=== PATIENT | male | born 1990 ===

== ENCOUNTER 2021-06-12 08:35 | Outpatient (REF) | payer OTHER, SELFPAY ==
[2021-06-12 11:50] LABS: Appearance Urine CLEAR; Color Urine YELLOW; Glucose Urine UA NEG (NEG); Leukocyte Esterase Urine NEG (NEG); Nitrite Urine NEG (NEG); Specific Gravity - Urine 1.025 (1.005-1.025); Urine Blood NEG (NEG); Urine Ketones NEG (NEG); Urine Protein NEG (NEG-TRACE)
[2021-06-12 12:18] LABS: Mucus Urine 1+ /LPF; RBC Urine 0 /HPF (0); WBC Urine 0 /HPF (0-4)
[2021-06-12 12:20] LABS: HBS Num1 85.55 mIU/mL (0-7.99); ~Hepatitis B Surface Antibody REACTIVE (Nonreactive)
[2021-06-12 12:32] LABS: HBsAGNum1 0.22 S/CO (0.00-0.99); HIV AB/AG Nonreactive (Nonreactive); Hepatitis B Surface Antigen Negative (Negative)
[2021-06-12 12:35] LABS: HBc Num1 0.24 S/CO (0.00-0.79); Hepatitis B Core Antibody Nonreactive (Nonreactive)
[2021-06-12 12:37] LABS: Alanine Aminotransferase 17 U/L (0-40); Albumin Level 4.3 g/dL (3.5-5.0); Alkaline Phosphatase 58 U/L (39-117); Anion Gap 12 (12-20); Aspartate Amino Transferase 17 U/L (5-37); Bilirubin Total 0.9 mg/dL (0.0-1.0); Blood Urea Nitrogen 12 mg/dL (9-16); Calcium 9.5 mg/dL (8.4-10.2); Carbon Dioxide 27 mmol/L (22-29); Chloride 105 mmol/L (96-108); Cholesterol 177 mg/dL; Estimated Glomerular Filt Rate > 60; Glucose Fasting 90 mg/dL (60-99); HDL Cholesterol 40 mg/dL; LDL Cholesterol Calculated 124 mg/dl; Potassium 4.1 mmol/L (3.3-5.1); Sodium 140 mmol/L (135-145); Triglycerides 69 mg/dL
[2021-06-12 13:24] LABS: Syphilis Screen Nonreactive (Nonreactive)
== END 2021-06-12 08:36 | disposition home or self-care (01) ==
LOC: HO.HMGCLDS 08:35
PROVIDERS: Visit Provider Internal Medicine
DX: Z00.00 Encounter for general adult medical examination without abnormal findings (principal); Z11.4 Encounter for screening for human immunodeficiency virus [HIV]; F41.9 Anxiety disorder, unspecified
CPT/HCPCS: 36415; 80053; 80061; 81001; 86704; 86706; 86780; 87340; 87389

== ENCOUNTER 2021-09-17 11:38 | Outpatient (REF) | payer OTHER, SELFPAY ==
[2021-09-17 13:44] LABS: MANUAL DIFF FLAG NO
[2021-09-17 14:01] LABS: Basophils Absolute Auto 0.1 X10*3/uL (0.0-0.2); Basophils Percent Auto 1.2 % (0-2); Eosinophils Absolute Auto 0.2 X10*3/uL (0.0-0.4); Eosinophils Percent Auto 3.6 % (0-4); Hematocrit 46.6 % (42.0-52.0); Hemoglobin 15.1 g/dl (14.0-18.0); Imm Gran Abs Auto 0.01 X10*3/uL (0.00-0.03); Imm Gran Pct Auto 0.2 % (0.0-0.4); Lymphocytes Absolute Auto 1.7 X10*3/uL (1.2-4.9); Lymphocytes Percent Auto 41.2 % (20-40); Mean Corpuscular HGB Conc 32.4 g/dl (31.0-36.0); Mean Corpuscular Hemoglobin 29.2 pg (27.0-33.0); Mean Platelet Volume 10.4 fL (9.4-12.4); Monocytes Absolute Auto 0.3 X10*3/uL (0.1-1.2); Monocytes Percent Auto 6.7 % (2-11); Neutrophils Percent Auto 47.1 % (45-73); Platelet Count 248 X10*3/uL (160-400); Red Blood Count 5.18 X10*6/uL (4.60-5.80); White Blood Count 4.2 X10*3/uL (4.8-10.8)
[2021-09-17 14:18] LABS: Alanine Aminotransferase 34 U/L (0-40); Albumin Level 4.5 g/dL (3.5-5.0); Alkaline Phosphatase 76 U/L (39-117); Anion Gap 10 (12-20); Aspartate Amino Transferase 21 U/L (5-37); Bilirubin Total 0.5 mg/dL (0.0-1.0); Blood Urea Nitrogen 13 mg/dL (9-16); Calcium 9.7 mg/dL (8.4-10.2); Carbon Dioxide 29 mmol/L (22-29); Chloride 105 mmol/L (96-108); Estimated Glomerular Filt Rate > 60; Glucose Random 99 mg/dL (60-115); Potassium 4.8 mmol/L (3.3-5.1); Sodium 139 mmol/L (135-145); Total Protein 7.3 g/dL (6.5-8.0)
[2021-09-18 07:31] LABS: Syphilis Screen Nonreactive (Nonreactive)
[2021-09-18 07:40] LABS: HIV AB/AG Nonreactive (Nonreactive)
== END 2021-09-17 11:39 | disposition home or self-care (01) ==
LOC: HO.HMGCLDS 11:38
PROVIDERS: PCP Internal Medicine; Visit Provider Internal Medicine
DX: Z00.00 Encounter for general adult medical examination without abnormal findings (principal); Z11.4 Encounter for screening for human immunodeficiency virus [HIV]
CPT/HCPCS: 36415; 80053; 85025; 86780; 87389

== ENCOUNTER 2021-12-23 14:26 | Outpatient (REF) | payer OTHER, SELFPAY ==
[2021-12-23 16:44] LABS: MANUAL DIFF FLAG NO
[2021-12-23 16:48] LABS: Basophils Absolute Auto 0.1 X10*3/uL (0.0-0.2); Eosinophils Absolute Auto 0.1 X10*3/uL (0.0-0.4); Eosinophils Percent Auto 1.9 % (0-4); Hematocrit 46.3 % (42.0-52.0); Hemoglobin 15.4 g/dl (14.0-18.0); Imm Gran Abs Auto 0.01 X10*3/uL (0.00-0.03); Imm Gran Pct Auto 0.2 % (0.0-0.4); Lymphocytes Absolute Auto 2.1 X10*3/uL (1.2-4.9); Lymphocytes Percent Auto 39.5 % (20-40); Mean Corpuscular HGB Conc 33.3 g/dl (31.0-36.0); Mean Corpuscular Hemoglobin 29.3 pg (27.0-33.0); Mean Corpuscular Volume 88.2 fL (80.0-98.0); Mean Platelet Volume 10.3 fL (9.4-12.4); Monocytes Absolute Auto 0.4 X10*3/uL (0.1-1.2); Monocytes Percent Auto 6.8 % (2-11); Neutrophils Absolute Auto 2.7 x10*3/uL (2.0-8.3); Neutrophils Percent Auto 50.6 % (45-73); Platelet Count 268 X10*3/uL (160-400); Red Blood Count 5.25 X10*6/uL (4.60-5.80); Red Cell Distribution Width 12.7 % (11.0-16.0); White Blood Count 5.3 X10*3/uL (4.8-10.8)
[2021-12-23 17:10] LABS: Alanine Aminotransferase 30 U/L (0-40); Albumin Level 4.7 g/dL (3.5-5.0); Alkaline Phosphatase 89 U/L (39-117); Anion Gap 15 (12-20); Aspartate Amino Transferase 21 U/L (5-37); Bilirubin Total 0.6 mg/dL (0.0-1.0); Blood Urea Nitrogen 14 mg/dL (9-16); Calcium 9.8 mg/dL (8.4-10.2); Carbon Dioxide 26 mmol/L (22-29); Chloride 105 mmol/L (96-108); Cholesterol 182 mg/dL; Estimated Glomerular Filt Rate > 60; Glucose Fasting 86 mg/dL (60-99); HDL Cholesterol 36 mg/dL; LDL Cholesterol Calculated 139 mg/dl; Potassium 4.7 mmol/L (3.3-5.1); Sodium 141 mmol/L (135-145); Total Protein 7.5 g/dL (6.5-8.0); Triglycerides 39 mg/dL
[2021-12-23 17:20] LABS: Syphilis Screen Nonreactive (Nonreactive)
[2021-12-24 08:42] LABS: HBS Num1 85.13 mIU/mL (0-7.99); HBsAGNum1 0.32 S/CO (0.00-0.99); HIV AB/AG Nonreactive (Nonreactive); HIV Num 1 0.05 S/CO (0.00-0.99); Hepatitis B Core Antibody Nonreactive (Nonreactive); Hepatitis B Surface Antigen Negative (Negative); ~HepC Num1 0.08 S/CO (0.00-0.79); ~Hepatitis B Surface Antibody REACTIVE (Nonreactive); ~Hepatitis C Antibody Nonreactive (Nonreactive)
[2021-12-25 07:04] LABS: Hepatitis A Antibody IgM 0.27 Index (0-0.79); ~Hepatitis A Antibody IgM Nonreactive (Nonreactive)
== END 2021-12-23 14:27 | disposition home or self-care (01) ==
LOC: HO.HMGCLDS 14:26
PROVIDERS: PCP Internal Medicine; Visit Provider Internal Medicine
DX: Z00.00 Encounter for general adult medical examination without abnormal findings (principal); Z11.4 Encounter for screening for human immunodeficiency virus [HIV]
CPT/HCPCS: 36415; 80053; 80061; 85025; 86704; 86706; 86709; 86780; 86803; 87340; 87389

== ENCOUNTER → 2022-02-10 12:36 | Outpatient (BNVA) | payer OTHER, SELFPAY | PROVIDERS: PCP Internal Medicine; Referring Provider Internal Medicine; Visit Provider Internal Medicine | DX: K92.1 Melena (principal); K64.8 Other hemorrhoids | CPT/HCPCS: 46600 ==

== ENCOUNTER 2022-09-10 11:19 | Outpatient (REF) | payer OTHER, SELFPAY ==
[2022-09-10 14:05] LABS: Cholesterol 166 mg/dL; HDL Cholesterol 33 mg/dL; LDL Cholesterol Calculated 121 mg/dl; Triglycerides 63 mg/dL
[2022-09-10 14:26] LABS: Syphilis Screen Nonreactive (Nonreactive)
[2022-09-13 08:17] LABS: HIV AB/AG Nonreactive (Nonreactive); HIV Num 1 0.06 S/CO (0.00-0.99); ~HepC Num1 0.09 S/CO (0.00-0.79); ~Hepatitis C Antibody Nonreactive (Nonreactive)
== END 2022-09-10 11:20 | disposition home or self-care (01) ==
LOC: HO.HMGCLDS 11:19
PROVIDERS: PCP Internal Medicine; Visit Provider Internal Medicine
DX: Z00.00 Encounter for general adult medical examination without abnormal findings (principal); E78.5 Hyperlipidemia, unspecified; Z79.899 Other long term (current) drug therapy
CPT/HCPCS: 36415; 80061; 86780; 86803; 87389

== ENCOUNTER 2022-09-18 11:28 | Outpatient (REF) | payer OTHER, SELFPAY ==
[2022-09-18 13:29] LABS: MANUAL DIFF FLAG NO
[2022-09-18 13:37] LABS: Basophils Absolute Auto 0.1 X10*3/uL (0.0-0.2); Basophils Percent Auto 1.2 % (0-2); Eosinophils Absolute Auto 0.1 X10*3/uL (0.0-0.4); Eosinophils Percent Auto 2.2 % (0-4); Hematocrit 46.8 % (42.0-52.0); Hemoglobin 15.5 g/dl (14.0-18.0); Imm Gran Abs Auto 0.03 X10*3/uL (0.00-0.03); Imm Gran Pct Auto 0.6 % (0.0-0.4); Lymphocytes Absolute Auto 2.1 X10*3/uL (1.2-4.9); Lymphocytes Percent Auto 42.9 % (20-40); Mean Corpuscular HGB Conc 33.1 g/dl (31.0-36.0); Mean Corpuscular Hemoglobin 28.8 pg (27.0-33.0); Mean Platelet Volume 9.8 fL (9.4-12.4); Monocytes Absolute Auto 0.3 X10*3/uL (0.1-1.2); Monocytes Percent Auto 6.3 % (2-11); Neutrophils Absolute Auto 2.3 x10*3/uL (2.0-8.3); Neutrophils Percent Auto 46.8 % (45-73); Platelet Count 315 X10*3/uL (160-400); Red Blood Count 5.38 X10*6/uL (4.60-5.80); Red Cell Distribution Width 12.7 % (11.0-16.0); White Blood Count 4.9 X10*3/uL (4.8-10.8)
[2022-09-18 13:50] LABS: Alanine Aminotransferase 36 U/L (0-40); Albumin Level 4.3 g/dL (3.5-5.0); Alkaline Phosphatase 77 U/L (39-117); Anion Gap 13 (12-20); Aspartate Amino Transferase 24 U/L (5-37); Bilirubin Total 0.6 mg/dL (0.0-1.0); Blood Urea Nitrogen 13 mg/dL (9-16); Calcium 10.1 mg/dL (8.4-10.2); Carbon Dioxide 26 mmol/L (22-29); Chloride 106 mmol/L (96-108); Cholesterol 173 mg/dL; Estimated Glomerular Filt Rate > 60; Glucose Fasting 88 mg/dL (60-99); HDL Cholesterol 35 mg/dL; LDL Cholesterol Calculated 129 mg/dl; Potassium 4.6 mmol/L (3.3-5.1); Sodium 140 mmol/L (135-145); Total Protein 7.5 g/dL (6.5-8.0); Triglycerides 47 mg/dL
[2022-09-18 14:31] LABS: Creatinine, 24Hr Urine 2.1 G/Day (1.0-2.0); Creatinine, mg/dL 152.23
[2022-09-18 20:37] LABS: Total Volume 24 Hour Urine 1375 mL
[2022-09-18 21:32] LABS: Creatinine (CrCl) 0.89 mg/dL (0.5-1.4); Creatinine Clearance 163.3 mL/min (85-125)
== END 2022-09-18 11:29 | disposition home or self-care (01) ==
LOC: HO.HMGCLDS 11:28
PROVIDERS: PCP Internal Medicine; Visit Provider Internal Medicine
DX: Z00.00 Encounter for general adult medical examination without abnormal findings (principal); E78.5 Hyperlipidemia, unspecified; Z79.899 Other long term (current) drug therapy
CPT/HCPCS: 36415; 80053; 80061; 82575; 85025

== ENCOUNTER 2022-09-18 13:36 | Outpatient (REF) | payer OTHER, SELFPAY | END 2022-09-18 13:37 | disposition home or self-care (01) | LOC: HO.LNP 13:36 | PROVIDERS: Visit Provider Internal Medicine | DX: Z13.89 Encounter for screening for other disorder (principal) ==

== ENCOUNTER 2022-12-27 10:56 | Outpatient (AMB) | payer OTHER, SELFPAY ==
[2022-12-27 11:01] VITALS: BP 106/70; PULSE 72; O2SAT 100; BMI 29.8
--- NOTE | 2022-12-27 11:01 | A.OFFPC_ITS ---
Vital Signs 12/27/22 11:01 Height 5 ft 9 in Weight 202 lb BMI 29.8 BP 106/70 Blood Pressure Location Lt brachial Position Sitting Pulse 72 Pulse Source Pulse Oximeter Pulse Oximetry (%) 100 Oxygen Delivery Method Room Air Intake Visit Reasons: PE Intake Note: Pt is here today for PE. Allergies No Known Allergies Allergy (Verified 12/27/22 11:02) Medication List - Last Reconciled 12/27/22 by Apryl Barrett MD emtricitabine-tenofovir (TDF) 200-300 mg (Truvada) 1 tab PO DAILY fluticasone propionate 50 mcg/actuation (Flonase Allergy Relief) 1 spray intranasal DAILY lidocaine HCl-hydrocortison ac 3-0.5 % 1 appl [place] BEDTIME 10 days Tobacco use date assessed: 12/27/22 Dental Screening Dental Screen Date: 12/27/22 Did you have a dental visit in the last 12 months?: No Did you have a dental problem in the last 6 months where you did not have access to dental care?: No Was dental information given to patient?: Patient declined HPI PE HPI Details Pt presents for PE. 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 Patient reports high noise level causes him increased anxiety and he has been working with a therapist on stress management. Patient denies suicidal ideation. 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 1. Little interest or pleasure in doing things: nearly every day 2. Feeling down, depressed, or hopeless: nearly every day 3. Trouble falling or staying asleep, or sleeping too much: nearly every day 4. Feeling tired or having little energy: nearly every day 5. Poor appetite or overeating: nearly every day 6. Feeling bad about yourself - or that you are a failure or have let yourself or your family down: nearly every day 7. Trouble concentrating on things, such as reading the newspaper or watching television: nearly every day 8. Moving or speaking so slowly that other people could have noticed. Or the opposite - being so fidgety or restless that you have been moving around a lot more than usual: nearly every day 9. Thoughts that you would be better off or of hurting yourself in some way: more than half the days Total score: 26 Depression Screening Interpretation: Positive Source: Developed by Drs. Donta Tucker, Laurel West, Bakari John and colleagues, with an educational gen from [employer]. Thrive Questionnaire Date Thrive assessed: 12/27/22 I am a: Patient What is your living situation today?: I have a steady place to live Within the past 12 months, did the food you bought not last and you didn't have the money to get more?: Never true Within the past 12 months, did you worry whether your food would run out before you got money to buy more?: Never true Do you have trouble paying for medicines?: Yes Do you have trouble getting transportation to medical appointments?: No Do you have trouble paying your heating and electricity bill?: Yes Do you have trouble taking care of your child, family member or friend?: No Do you have trouble with day-to-day activities such as bathing, preparing meals, shopping, managing finances, etc.?: Yes Are you currently unemployed and looking for a job?: No Are you interested in more education?: Yes AUDIT C Alcohol Use Questionnaire (AUDIT-C) 1. How often do you have a drink containing alcohol?: Never 3. How often do you have six or more drinks on one occasion?: Never Total Score: 0 KELL-7 AMB Questionnaire KELL-7 Date KELL - 7 assessed: 12/27/22 Feeling nervous, anxious, or on edge: 3 = Nearly every day Not being able to stop or control worryin = Nearly every day Worrying too much about different things: 3 = Nearly every day Trouble relaxin = Nearly every day Being so restless that it is hard to sit still: 3 = Nearly every day Becoming easily annoyed or irritable: 3 = Nearly every day Feeling afraid as if something awful might happen: 3 = Nearly every day Total KELL-7 score (0-4 normal; 5-9 mild; 10-14 moderate; 15-21 severe): 21 Source: Developed by Drs. Donta Tucker, Laurel West, Bakari John and colleagues, with an educational gen from [employer]. Review of Systems Const All systems reviewed & are unremarkable except as noted in HPI and below Reports no additional complaints Eyes Reports no additional complaints ENT Reports no additional complaints Card Reports no additional complaints Resp Reports no additional complaints GI Reports no additional complaints Reports no additional complaints Musc Reports no additional complaints Physical exam (Primary Care) Vital Signs: Last Vital Signs Pulse 72 12/27/22 11:01 BP 106/70 12/27/22 11:01 Pulse Ox 100 12/27/22 11:01 Oxygen Delivery Method Room Air 12/27/22 11:01 BMI result Body Mass Index 29.8 Tobacco/Smoking Status: Tobacco use Status Tobacco use date assessed 12/27/22 12/27/22 11:06 Patient Tobacco Use Status Never used Tobacco 12/27/22 11:06 e-Cigarette/Vaping Use Never Used 12/27/22 11:06 PHQ-9: PHQ-9 Score PHQ-9: Total score 26 12/27/22 12:03 Depression Screening Interpretation: Positive Thrive Assessment: Date of Thrive Assessment Date Thrive assessed 12/27/22 12/27/22 12:03 Const General: no acute distress HENMT Head: Yes normal to inspection Ears: hearing grossly normal bilaterally General nose exam: Normal external nose present Mouth: Normal oral and palatal mucosa present Throat: Yes posterior oropharynx normal Eyes General: appearance normal, both eyes and all related structures Neck Neck: Yes no lymphadenopathy and Yes supple Resp Effort & Inspection: normal respiratory effort Auscultation: clear to auscultation bilaterally Cardio Rhythm: regular rhythm Heart sounds: S1 normal heart sound present and S2 normal heart sound present GI Inspection: Yes normal to inspection Palpation (GI): Soft to palpation Percussion: Yes normal to percussion Auscultation: normal bowel sounds Assessment and Plan Assessment & Plan (1) Annual physical exam: Code(s): Z00.00 - Encounter for general adult medical examination without abnormal findings Plan: balanced diet regular physical activity and stress management discussed with the patient. (2) On pre-exposure prophylaxis for HIV: Comment: on Truvada Code(s): Z79.899 - Other intermediate (current) drug therapy Plan: Patient is aware that he needs to have HIV testing every 3 months, STD and renal function testing every 6 months while on Truvada (3) Anxiety: Code(s): F41.9 - Anxiety disorder, unspecified Plan: Follow-up with a counselor, patient is not interested in medical treatment Orders: Orders HIV Ab/Ag Today Z00.00 - Encounter for general adult medical examination without abnormal findings, Z79.899 - Other terminal gauger (current) drug therapy Syphilis Screen Today Z00.00 - Encounter for general adult medical examination without abnormal findings, Z79.899 - Other intermediate (current) drug therapy Hepatitis C Antibody Today Z00.00 - Encounter for general adult medical examination without abnormal findings, Z79.899 - Other terminal gauger (current) drug therapy HIV Ab/Ag 6 Months Z79.899 - Other intermediate (current) drug therapy Creatinine 6 Months Z79.899 - Other intermediate (current) drug therapy Syphilis Screen 6 Months Z79.899 - Other terminal gauger (current) drug therapy Hepatitis C Antibody 6 Months Z79.899 - Other terminal gauger (current) drug therapy Comprehensive Met. Panel Today Z00.00 - Encounter for general adult medical exa mination without abnormal findings, Z79.899 - Other intermediate (current) drug therapy CT NG by PCR Today Z00.00 - Encounter for general adult medical examination without abnormal findings, Z79.899 - Other terminal gauger (current) drug therapy HIV Ab/Ag 3 Months Z79.899 - Other terminal gauger (current) drug therapy CT NG by PCR 6 Months Z79.899 - Other intermediate (current) drug therapy Medications: New meloxicam 15 mg PO DAILY 30 tabs 0RF meloxicam 15 mg PO DAILY 30 tabs 0RF Refilled emtricitabine-tenofovir (TDF) 200-300 mg (Truvada) 1 tab PO DAILY 90 tabs 2RF Coding Level of Care Code Est Pt Prev Care 18-39y(33779) Diagnoses Annual physical exam Z00.00 On pre-exposure prophylaxis for HIV Z79.899 Anxiety F41.9
== END 2022-12-27 12:03 | disposition home or self-care (01) ==
PROVIDERS: Visit Provider Internal Medicine
DX: Z00.00 Encounter for general adult medical examination without abnormal findings (principal); Z79.899 Other long term (current) drug therapy; F41.9 Anxiety disorder, unspecified
CPT/HCPCS: 99395

== ENCOUNTER 2022-12-27 12:04 | Outpatient (REF) | payer OTHER, SELFPAY ==
[2022-12-27 13:59] LABS: Alanine Aminotransferase 35 U/L (0-40); Albumin Level 4.5 g/dL (3.5-5.0); Alkaline Phosphatase 78 U/L (39-117); Anion Gap 11 (12-20); Aspartate Amino Transferase 22 U/L (5-37); Bilirubin Total 0.5 mg/dL (0.0-1.0); Blood Urea Nitrogen 9 mg/dL (9-16); Calcium 9.7 mg/dL (8.4-10.2); Carbon Dioxide 27 mmol/L (22-29); Chloride 107 mmol/L (96-108); Estimated Glomerular Filt Rate > 60; Glucose Random 81 mg/dL (60-115); Potassium 4.2 mmol/L (3.3-5.1); Sodium 141 mmol/L (135-145); Total Protein 7.4 g/dL (6.5-8.0)
[2022-12-28 03:43] LABS: Syphilis Screen Nonreactive (Nonreactive)
[2022-12-28 05:12] LABS: HIV AB/AG Nonreactive (Nonreactive); HIV Num 1 0.06 S/CO (0.00-0.99); ~Hepatitis C Antibody Nonreactive (Nonreactive)
== END 2022-12-27 12:05 | disposition home or self-care (01) ==
LOC: HO.HMGCLDS 12:04
PROVIDERS: PCP Internal Medicine; Visit Provider Internal Medicine
DX: Z00.00 Encounter for general adult medical examination without abnormal findings (principal); Z79.899 Other long term (current) drug therapy
CPT/HCPCS: 36415; 80053; 86780; 86803; 87389

== ENCOUNTER 2023-06-27 10:15 | Outpatient (AMB) | payer OTHER, SELFPAY ==
--- NOTE | 2023-06-27 10:21 | MHC.PC.OV ---
Vital Signs 06/27/23 10:41 Height 5 ft 9 in Weight 214 lb BMI 31.6 BP 102/66 Blood Pressure Location Lt brachial Position Sitting Pulse 78 Pulse Source Pulse Oximeter Pulse Oximetry (%) 98 Oxygen Delivery Method Room Air Intake Visit Reasons: 6 month follow up Intake Note: Pt is here today for 6 months follow up visit. Allergies No Known Allergies Allergy (Verified 06/27/23 10:43) Medication List - Last Reconciled 06/27/23 by Apryl Barrett MD emtricitabine-tenofovir (TDF) 200-300 mg (Truvada) 1 tab PO DAILY fluticasone propionate 50 mcg/actuation (Flonase Allergy Relief) 1 spray intranasal DAILY lidocaine HCl-hydrocortison ac 3-0.5 % 1 appl [place] BEDTIME 10 days meloxicam 15 mg PO DAILY Tobacco use date assessed: 06/27/23 Dental Screening Dental Screen Date: 06/27/23 Did you have a dental visit in the last 12 months?: Yes Did you have a dental problem in the last 6 months where you did not have access to dental care?: No Was dental information given to patient?: Patient has dentist HPI 6 month follow up HPI Details Patient presents for the follow-up of chronic anxiety improved after patient quit his job 2 weeks ago. 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 Chest pain resolved after patient quit his job and he denies exercise induced chest pains. Patient complains of irritated skin growth on his neck with occasionally bleeding after shaving. 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 1. Little interest or pleasure in doing things: more than half the days 2. Feeling down, depressed, or hopeless: several days 3. Trouble falling or staying asleep, or sleeping too much: nearly every day 4. Feeling tired or having little energy: several days 5. Poor appetite or overeating: several days 6. Feeling bad about yourself - or that you are a failure or have let yourself or your family down: more than half the days 7. Trouble concentrating on things, such as reading the newspaper or watching television: more than half the days 8. Moving or speaking so slowly that other people could have noticed. Or the opposite - being so fidgety or restless that you have been moving around a lot more than usual: nearly every day 9. Thoughts that you would be better off or of hurting yourself in some way: not at all Total score: 15 Depression Screening Interpretation: Positive (he is established with a counselor and declined taking medications) Depression Screening Follow-up: Existing condition and In treatment Depression Screening Done: Yes 84861 - PHQ-9 Billing: Yes Source: Developed by Drs. Donta Tucker, Laurel West, Bakari John and colleagues, with an educational gen from [employer]. Thrive Questionnaire Date Thrive assessed: 06/27/23 I am a: Patient What is your living situation today?: I have a steady place to live Within the past 12 months, did the food you bought not last and you didn't have the money to get more?: Sometimes True Within the past 12 months, did you worry whether your food would run out before you got money to buy more?: Sometimes True Do you have trouble paying for medicines?: Yes Do you have trouble getting transportation to medical appointments?: No Do you have trouble paying your heating and electricity bill?: Yes Do you have trouble taking care of your child, family member or friend?: No Do you have trouble with day-to-day activities such as bathing, preparing meals, shopping, managing finances, etc.?: Yes Are you currently unemployed and looking for a job?: Yes Are you interested in more education?: No THRIVE Score: 3 AUDIT C Alcohol Use Questionnaire (AUDIT-C) 1. How often do you have a drink containing alcohol?: Never 3. How often do you have six or more drinks on one occasion?: Never Total Score: 0 KELL-7 AMB Questionnaire KELL-7 Date KELL - 7 assessed: 06/27/23 Feeling nervous, anxious, or on edge: 2 = More than half the days Not being able to stop or control worryin = Nearly every day Worrying too much about different things: 3 = Nearly every day Trouble relaxin = Nearly every day Being so restless that it is hard to sit still: 2 = More than half the days Becoming easily annoyed or irritable: 2 = More than half the days Feeling afraid as if something awful might happen: 2 = More than half the days Total KELL-7 score (0-4 normal; 5-9 mild; 10-14 moderate; 15-21 severe): 17 Source: Developed by Drs. Donta Tucker, Laurel West, Bakari John and colleagues, with an educational gen from [employer]. KELL-7 Assessment Billing KELL-7 Assessment Tool: KELL-7 Assessment 07647 Review of Systems Const All systems reviewed & are unremarkable except as noted in HPI and below Reports no additional complaints Eyes Reports no additional complaints ENT Reports no additional complaints Card Reports no additional complaints Resp Reports no additional complaints GI Reports no additional complaints Reports no additional complaints Physical exam (Primary Care) Vital Signs: Last Vital Signs Pulse 78 06/27/23 10:41 BP 102/66 06/27/23 10:41 Pulse Ox 98 06/27/23 10:41 Oxygen Delivery Method Room Air 06/27/23 10:41 BMI result Body Mass Index 31.6 Tobacco/Smoking Status: Tobacco use Status Tobacco use date assessed 06/27/23 06/27/23 10:45 Patient Tobacco Use Status Never used Tobacco 06/27/23 10:45 e-Cigarette/Vaping Use Never Used 06/27/23 10:21 PHQ-9: PHQ-9 Score PHQ-9: Total score 15 06/27/23 10:53 Depression Screening Interpretation: Positive (he is established with a counselor and declined taking medications) Depression Screening Follow-up: Existing condition and In treatment Thrive Assessment: Date of Thrive Assessment Date Thrive assessed 06/27/23 06/27/23 10:53 Const General: no acute distress HENMT Head: Yes normal to inspection Mouth: Normal oral and palatal mucosa present Eyes General: appearance normal, both eyes and all related structures Neck Neck: Yes supple Resp Effort & Inspection: normal respiratory effort Auscultation: clear to auscultation bilaterally Cardio Rhythm: regular rhythm Heart sounds: S1 normal heart sound present and S2 normal heart sound present Skin Other: 1 cm raised nevus on the left side of the neck Assessment and Plan Assessment & Plan (1) Dysplastic nevi: Code(s): D23.9 - Other benign neoplasm of skin, unspecified Plan: Referred to dermatology (2) On pre-exposure prophylaxis for HIV: Comment: on Truvada and doxycycline 200 mg within 24-42 hours of unprotected sex (DoxyPEP) Code(s): Z79.899 - Other intermediate manager (current) drug therapy Plan: CHECK HIV AND STD today. Patient was advised to have HIV testing every 3 months and STD testing every 6 months while on Truvada (3) Hyperlipidemia: Code(s): E78.5 - Hyperlipidemia, unspecified Plan: Continue low-cholesterol diet return for physical in 6 months with a fasting labs before (4) Annual physical exam: Code(s): Z00.00 - Encounter for general adult medical examination without abnormal findings Orders: Orders HIV Ab/Ag 6 Months E78.5 - Hyperlipidemia, unspecified, Z00.00 - Encounter for general adult medical examination without abnormal findings, Z79.899 - Other intermediate manager (current) drug therapy Syphilis Screen 6 Months E78.5 - Hyperlipidemia, unspecified, Z00.00 - Encounter for general adult medical examination without abnormal findings, Z79.899 - Other intermediate manager (current) drug therapy CT NG by PCR 6 Months E78.5 - Hyperlipidemia, unspecified, Z00.00 - Encounter for general adult medical examination without abnormal findings, Z79.899 - Other intermediate manager (current) drug therapy Lipid Panel 6 Months E78.5 - Hyperlipidemia, unspecified, Z00.00 - Encounter for general adult medical examination without abnormal findings, Z79.899 - Other intermediate manager (current) drug therapy Complete Blood Count Auto Diff 6 Months E78.5 - Hyperlipidemia, unspecified, Z00.00 - Encounter for general adult medical examination without abnormal findings, Z79.899 - Other intermediate manager (current) drug therapy Hepatitis B Core Antibody 6 Months E78.5 - Hyperlipidemia, unspecified, Z00.00 - Encounter for general adult medical examination without abnormal findings, Z79.899 - Other intermediate manager (current) drug therapy Comprehensive [place]. Panel Fast 6 Months E78.5 - Hyperlipidemia, unspecified, Z00.00 - Encounter for general adult medical examination without abnormal findings, Z79.899 - Other intermediate manager (current) drug therapy HIV Ab/Ag 3 Months Z79.899 - Other intermediate manager (current) drug therapy Referrals Dermatology Referral D23.9 - Other benign neoplasm of skin, unspecified Medications: New doxycycline hyclate 2 TABL PO within 24-72 hrs after unprotected sex, no more then 2 tabl in 24 hrs 200 mg (2 x 100 mg) PO Q24H 60 tabs 5RF Refilled meloxicam 15 mg PO DAILY 30 tabs 2RF emtricitabine-tenofovir (TDF) 200-300 mg (Truvada) 1 tab PO DAILY 90 tabs 2RF Coding Level of Care Code Est Pt Level 3 (17238) Diagnoses Dysplastic nevi D23.9 On pre-exposure prophylaxis for HIV Z79.899 Hyperlipidemia E78.5 Annual physical exam Z00.00 Additional Codes KELL-7 Assessment Billing - KELL-7 Assessment Tool: KELL-7 Assessment [id number] ([id number])
[2023-06-27 10:41] VITALS: BP 102/66; PULSE 78; O2SAT 98; BMI 31.6
== END 2023-06-27 11:29 | disposition home or self-care (01) ==
PROVIDERS: PCP Internal Medicine; Visit Provider Internal Medicine
DX: D23.9 Other benign neoplasm of skin, unspecified (principal); Z79.899 Other long term (current) drug therapy; E78.5 Hyperlipidemia, unspecified; Z00.00 Encounter for general adult medical examination without abnormal findings
CPT/HCPCS: 99213

== ENCOUNTER 2023-06-27 11:15 | Outpatient (REF) | payer OTHER, SELFPAY ==
[2023-06-27 14:37] LABS: Estimated Glomerular Filt Rate > 60
[2023-06-28 04:19] LABS: Syphilis Screen Nonreactive (Nonreactive)
[2023-06-28 04:54] LABS: HIV AB/AG Nonreactive (Nonreactive); HIV Num 1 0.06 S/CO (0.00-0.99); ~HepC Num1 0.13 S/CO (0.00-0.79); ~Hepatitis C Antibody Nonreactive (Nonreactive)
== END 2023-06-27 11:16 | disposition home or self-care (01) ==
LOC: HO.HMGCLDS 11:15
PROVIDERS: PCP Internal Medicine; Visit Provider Internal Medicine
DX: Z11.4 Encounter for screening for human immunodeficiency virus [HIV] (principal); Z79.899 Other long term (current) drug therapy
CPT/HCPCS: 36415; 82565; 86780; 86803; 87389

== ENCOUNTER 2024-01-03 11:38 | Emergency (ER) | payer BC, SELFPAY ==
--- NOTE | ~2024-01-03 | US_ITS ---
EXAMINATION: US TRIPLEX LOWER EXTREMITY, LEFT CLINICAL INFORMATION: Leg swelling COMPARISON: None available. TECHNIQUE: Color-flow triplex imaging with spectral analysis and compression Doppler were performed on the left lower extremity. FINDINGS: Respiratory variation, normal compression and augmented flow are noted throughout the left lower extremity. The visualized common femoral vein, superficial femoral vein, profunda femoral vein, popliteal vein and midcalf peroneal and posterior tibial venous segments show no evidence of deep venous thrombosis. There is a 2.0 x 0.8 x 1.8 cm Arroyo's cyst present. Some fluid is present anterior to the knee as well. US/US venous duplex LE LT IMPRESSION: No evidence of deep venous thrombosis involving the left lower extremity. Electronically signed by: German Danielson MD 01/03/2024 07:58 PM EDT
--- NOTE | ~2024-01-03 | XR_ITS ---
EXAMINATION: XR KNEE, LEFT CLINICAL INFORMATION: Pain and tightness in the knee after dancing this past weekend COMPARISON: None available. TECHNIQUE: Four views of the left knee. FINDINGS: No fracture or joint effusion. Alignment is anatomic. Joint spaces are maintained. No abnormal soft tissue calcification. XR/XR knee LT 4V IMPRESSION: Normal left knee. Electronically signed by: German Danielson MD 01/03/2024 01:31 PM EDT
[2024-01-03 11:52] VITALS: BP 138/89; PULSE 83; RESP 20; TEMP 36.8; O2SAT 100; BMI 32.0
--- NOTE | 2024-01-03 11:53 | ED_ITS ---
HPI - General Adult General Chief complaint: Extremity Injury, Lower Stated complaint: Pain L knee Time Seen by Provider: 01/03/24 16:29 Source: patient Mode of arrival: ambulatory Limitations: no limitations History of Present Illness ED Provider: Juvenal Ace HPI narrative: 33-year-old male presents to ED for left knee pain since Tuesday. Patient states left knee pain now swollen. Patient states he was additionally for dance group and after the competition he had some mild left knee discomfort and then drove 3 hours back home. He then noticed he started having some anterior posterior knee swelling with pain on range of motion. Patient denies any fever, chills, chest pain or shortness of breath. Patient states grandmother had history of blood clot. Patient denies any pleurisy or coughing up blood Related Data Previous Rx's ?Medication ?Instructions ?Recorded lidocaine 3 %-hydrocortisone 0.5 % 1 appl [place] BEDTIME 10 days #7 grams 02/10/22 rectal cream fluticasone propionate 50 1 spray intranasal DAILY #16 grams 09/10/22 mcg/actuation nasal spray,suspension (Flonase Allergy Relief) doxycycline hyclate 100 mg 200 mg (2 x 100 mg) PO Q24H #60 06/27/23 tablet,delayed release tabs emtricitabine 200 mg-tenofovir 1 tab PO DAILY #90 tabs 06/27/23 disoproxil fumarate 300 mg tablet (Truvada) meloxicam 15 mg tablet 15 mg PO DAILY #30 tabs 06/27/23 ketorolac 10 mg tablet 10 mg PO Q6H 5 days #20 tabs 01/03/24 prednisone 20 mg tablet 40 mg (2 x 20 mg) PO DAILY 5 days 01/03/24 #10 tabs Allergies Allergy/AdvReac Type Severity Reaction Status Date / Time No Known Allergies Allergy Verified 01/03/24 11:54 Review of Systems 2 Review of Systems: LEft knee pain Yes all other systems are reviewed and are negative PMFSH Past Medical History Medical History Lower back pain Annual physical exam Depression Anxiety Surgical History Hx of eye surgery Family History Family History Mother Anxiety Depression Diabetes Brother ADHD Maternal Grandmother Hypertension High cholesterol Other Mental health disorder Substance use disorder Social History Social History Household Members Other:: , 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, 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 Housing: House Patient Tobacco Use Status: Never used Tobacco e-Cigarette/Vaping Use: Never Used Advance Directives: No Advance Directives Information Provided: Yes Do you have a plan to hurt others: No Plan Current occupational status: employed Cognitive needs: No Hearing needs: No Vision needs: No Physical Exam ED Vital Signs: Vital Signs - 24 hr 01/03/24 11:52 01/03/24 15:53 01/03/24 19:29 Temperature 98.3 F 98.3 F 98.5 F Pulse Rate 83 72 82 Respiratory Rate 20 16 12 Blood Pressure 138/89 119/76 133/72 Pulse Oximetry 100 98 Oxygen Delivery Method Room Air Room Air Room Air Oxygen Flow Rate 99 01/03/24 20:41 Temperature 98.5 F Pulse Rate 82 Respiratory Rate 12 Blood Pressure 133/72 Pulse Oximetry 98 Oxygen Delivery Method Room Air Oxygen Flow Rate BMI result Body Mass Index 32.0 Const General: cooperative, healthy appearing, comfortable, no acute distress, well developed, alert, awake and Physically active Orientation/consciousness: patient oriented x3 HENMT Head: Yes normal to inspection, Yes No palpable skull fracture present, Yes normocephalic, Yes atraumatic and No abrasion Eyes General: appearance normal, both eyes and all related structures Neck Neck: Yes normal visual inspection, Yes full ROM, Yes no lymphadenopathy, Yes no meningeal signs, Yes trachea midline, Yes supple, No anterior neck swelling and No tender Chest Chest palpation & inspection: normal inspection of the chest and normal palpation of entire chest wall Resp Effort & Inspection: normal respiratory effort and able to speak in complete sentences Auscultation: clear to auscultation bilaterally Cardio Jugular venous distension: no JVD Heart sounds: S1 normal heart sound present and S2 normal heart sound present GI Inspection: Yes normal to inspection Palpation (GI): Soft to palpation, not firm, nontender, no guarding and not rigid General: No CVA tenderness and Yes no CVA tenderness Back/Spine/Pelvis Back: no CVA tenderness, No CVA tenderness and No back tenderness Skin General skin exam: no rashes or lesions noted, elasticity normal and turgor normal Neuro General: patient oriented x3, gait normal, tone normal, moves all extremities, Normal light touch and pain sensation, no meningeal signs, no focal motor deficits, CN's II-XI intact bilaterally and normal sensation to monofilament Extrem General: Yes normal to inspection and Yes full ROM Knee images: 2 1. Positive for tenderness and swelling on palpation. Negative for ecchymosis, erythema, warmth, deformity, or elasticity. Negative for stiffness. Able to flex and extend knee but with pain. Rest of extremity normal. Motor/neuro/vascular exam intact. 2. Positive for tenderness and swelling on palpation. Negative for ecchymosis, erythema, warmth, deformity, or elasticity. Negative for stiffness. Able to flex and extend knee but with pain. Rest of extremity normal. Motor/neuro/vascular exam intact. 3. Positive for tenderness to palpation. Negative for swelling, ecchymosis, deformity or erythema. Motor/neuro/vascular exam intact Psych Appearance: grossly normal, well kempt and not disheveled Course Course Course Narrative: RME, this is a rapid medical exam performed by Samm Fernandes please refer to primary provider for complete H&P- 33-year-old male presents for evaluation of left knee pain. 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 He woke up yesterday morning with pain. Denies any specific falls or twisting injuries. Plan for x-ray Medications Administered Discontinued Medications Generic Name Dose Route Start Last Admin Trade Name Freq PRN Reason Stop Dose Admin Ketorolac Tromethamine 30 mg 01/03/24 17:11 01/03/24 17:26 Ketorolac Tromethamine 30 Mg/Ml Vial IM 01/03/24 17:12 30 mg ONCE ONE Administration Medical Decision Making Medical Decision Making MDM Narrative: 33-year-old male with left knee pain after additional for dancing and traveling 3 hours. Knee x-ray normal negative for fracture, dislocation, or effusion. Patient is sent for ultrasound to rule out DVT. 7:48pm. Still awaiting for ultrasound results. Patient to be discharged with pain meds and steroids. patient has his own crutches at home. Not suspecting cellulitis, compartment syndrome, arterial occlusion, osteomyleitits, septic arthritis/joint, or DVT Differential Diagnosis Differential Diagnoses: The differential diagnosis associated with the presentation includes (Knee sprain, DVT, ligament meniscus tear, Arroyo's cyst) Admission/Observation Consideration of admission/observation: Escalation of care including admission/observation considered Independent Interpretation I performed an independent interpretation of an: Plain X-Ray and Ultrasound Radiology Impression Discussion of test interpretation with radiology: I have reviewed the radiologist's reading. Independent Historian Clinical information obtained from an independent historian. History obtained from or confirmed by: Other (Patient) External Record Review External record reviewed: Other (prior vistis) Discharge Plan Discharge Clinical Impression: Arroyo's cyst, Knee sprain Patient Disposition: Home, Self-Care Instructions: Knee Sprain (ED), Crutch Instructions (ED), Bakers Cyst (ED), R.I.C.E. Treatment (ED) Additional Instructions: You will need follow-up with your primary care provider for physical therapy and referral to orthopedic surgeon. Ultrasound showed Arroyo cyst and some fluid anterior to the knee. You may need MRI to make sure there is no meniscus ligament tear. You are placed in a knee brace. You will be discharged with pain medication and steroids. Do not take any other NSAIDs with ketorolac. FINDINGS: No fracture or joint effusion. Alignment is anatomic. Joint spaces are maintained. No abnormal soft tissue calcification. XR/XR knee LT 4V IMPRESSION: Normal left knee. Electronically signed by: German Danielson MD 01/03/2024 01:31 PM EDT RP There is a 2.0 x 0.8 x 1.8 cm Arroyo's cyst present. Some fluid is present anterior to the knee as well. US/US venous duplex LE LT IMPRESSION: No evidence of deep venous thrombosis involving the left lower extremity. Electronically signed by: German Danielson MD 01/03/2024 07:58 PM EDT RP Prescriptions: New prednisone 20 mg tablet 40 mg PO DAILY 5 Days Qty: 10 0RF ketorolac 10 mg tablet 10 mg PO Q6H 5 Days Qty: 20 0RF Rx Instructions: Patient received 30 mg IM Toradol in the ED No Action fluticasone propionate [Flonase Allergy Relief] 50 mcg/actuation spray,suspension 1 spray intranasal DAILY Qty: 16 1RF Rx Instructions: administer into each nostril emtricitabine-tenofovir (TDF) [Truvada] 200-300 mg tablet 1 tab PO DAILY Qty: 90 2RF doxycycline hyclate 100 mg tablet,delayed release (DR/EC) 200 mg PO Q24H Qty: 60 5RF Rx Instructions: 2 TABL PO within 24-72 hrs after unprotected sex, no more then 2 tabl in 24 hrs meloxicam 15 mg tablet 15 mg PO DAILY Qty: 30 2RF lidocaine HCl-hydrocortison ac 3-0.5 % cream 1 appl [place] BEDTIME 10 Days Qty: 7 0RF Referrals: [facility] [Provider Group] (Knee sprain potential meniscus ligament tear. Arroyo's cyst) Stand Alone Forms: Work/School Release Interventions: ED Discharge Assessment Last Done: 01/03/24 20:41 Discharge Date/Time: 01/03/24 20:42 Print Language: Macanese
[2024-01-03 15:53] VITALS: BP 119/76; PULSE 72; RESP 16; TEMP 36.8
[2024-01-03] MEDS: Ketorolac Tromethamine 30 MG/ML VIAL IM (17:26)
[2024-01-03 19:29] VITALS: BP 133/72; PULSE 82; RESP 12; TEMP 36.9; O2SAT 98
[2024-01-03 20:41] VITALS: BP 133/72; PULSE 82; RESP 12; TEMP 36.9; O2SAT 98
== END 2024-01-03 20:42 | disposition home or self-care (01) ==
PROVIDERS: Emergency Provider Internal Medicine; PCP Internal Medicine
DX: M71.22 Synovial cyst of popliteal space [Baker], left knee (principal); S83.92XA Sprain of unspecified site of left knee, initial encounter; X50.9XXA Other and unspecified overexertion or strenuous movements or postures, initial encounter; M79.89 Other specified soft tissue disorders; M25.562 Pain in left knee; Y93.41 Activity, dancing; Y92.89 Other specified places as the place of occurrence of the external cause; Y99.9 Unspecified external cause status
CPT/HCPCS: 73564; 93971; 96372; 99283; 99284; J1885

== ENCOUNTER 2024-01-09 08:38 | Outpatient (AMB) | payer BC, SELFPAY ==
[2024-01-09 08:42] VITALS: BP 120/84; PULSE 75; O2SAT 97; BMI 33.8
--- NOTE | 2024-01-09 08:42 | A.OFFPC_ITS ---
Vital Signs 01/09/24 08:42 Height 5 ft 9 in Weight 229 lb BMI 33.8 BP 120/84 Blood Pressure Location Lt brachial Position Sitting Pulse 75 Pulse Source Pulse Oximeter Pulse Oximetry (%) 97 Oxygen Delivery Method Room Air Intake Visit Reasons: PE Intake Note: Pt is here today for PE. Pt states that he was just treated for shingles early December. Allergies No Known Allergies Allergy (Verified 01/09/24 08:47) Medication List - Last Reconciled 01/09/24 by Apryl Barrett MD emtricitabine-tenofovir (TDF) 200-300 mg (Truvada) 1 tab PO DAILY fluticasone propionate 50 mcg/actuation (Flonase Allergy Relief) 1 spray intranasal DAILY ketorolac 10 mg PO Q6H 5 days lidocaine HCl-hydrocortison ac 3-0.5 % 1 appl [place] BEDTIME 10 days meloxicam 15 mg PO DAILY Tobacco use date assessed: 01/09/24 Dental Screening Dental Screen Date: 01/09/24 Did you have a dental visit in the last 12 months?: Yes Did you have a dental problem in the last 6 months where you did not have access to dental care?: No Was dental information given to patient?: Patient has dentist HPI PE HPI Details Pt presents for PE. Pt had an episode of L side chest pain lasting a few days, pressure like not related for physical activity, a month ago. He denies shortness or breath dyspnea on exertion palpitations pleurisy fever chills or cough related to the chest pain. Pt c/o left knee pain and swelling for 1 week after dancing for few hours. 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 Pt took Prednisone for 1 week without significant relief. The pain is worse when patient is walking but also at rest. 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 1. Little interest or pleasure in doing things: more than half the days 2. Feeling down, depressed, or hopeless: several days 3. Trouble falling or staying asleep, or sleeping too much: nearly every day 4. Feeling tired or having little energy: nearly every day 5. Poor appetite or overeating: nearly every day 6. Feeling bad about yourself - or that you are a failure or have let yourself or your family down: several days 7. Trouble concentrating on things, such as reading the newspaper or watching television: more than half the days 8. Moving or speaking so slowly that other people could have noticed. Or the opposite - being so fidgety or restless that you have been moving around a lot more than usual: more than half the days 9. Thoughts that you would be better off or of hurting yourself in some way: not at all Total score: 17 Depression Screening Interpretation: Positive (Patient is established with a counselor) Depression Screening Follow-up: Existing condition and In treatment Depression Screening Done: Yes [id number] - PHQ-9 Billing: Yes Source: Developed by Drs. Donta Tucker, Laurel West, Bakari John and colleagues, with an educational gen from [employer]. Thrive Questionnaire Date Thrive assessed: 01/09/24 I am a: Patient What is your living situation today?: I have a steady place to live Within the past 12 months, did the food you bought not last and you didn't have the money to get more?: Never true Within the past 12 months, did you worry whether your food would run out before you got money to buy more?: Never true Do you have trouble paying for medicines?: No Do you have trouble getting transportation to medical appointments?: No Do you have trouble paying your heating and electricity bill?: No Do you have trouble taking care of your child, family member or friend?: No Do you have trouble with day-to-day activities such as bathing, preparing meals, shopping, managing finances, etc.?: No Are you currently unemployed and looking for a job?: No Are you interested in more education?: No Please select the resources that you would like help with: None Currently or been in a relationship where the following occur: No concerns repor mikey THRIVE Score: 0 AUDIT C Alcohol Use Questionnaire (AUDIT-C) 1. How often do you have a drink containing alcohol?: Monthly or less 2. How many drinks containing alcohol do you have on a typical day when you are drinking?: 1 or 2 3. How often do you have six or more drinks on one occasion?: Never Total Score: 1 KELL-7 AMB Questionnaire KELL-7 Date KELL - 7 assessed: 01/09/24 Feeling nervous, anxious, or on edge: 2 = More than half the days Not being able to stop or control worryin = More than half the days Worrying too much about different things: 2 = More than half the days Trouble relaxin = Nearly every day Being so restless that it is hard to sit still: 3 = Nearly every day Becoming easily annoyed or irritable: 2 = More than half the days Feeling afraid as if something awful might happen: 1 = Several days Total KELL-7 score (0-4 normal; 5-9 mild; 10-14 moderate; 15-21 severe): 15 Source: Developed by Drs. Donta Tucker, Laurel West, Bakari John and colleagues, with an educational gen from [employer]. KELL-7 Assessment Billing KELL-7 Assessment Tool: KELL-7 Assessment 10914 Review of Systems Const All systems reviewed & are unremarkable except as noted in HPI and below Reports no additional complaints Eyes Reports no additional complaints ENT Reports no additional complaints Card Reports no additional complaints Resp Reports no additional complaints GI Reports no additional complaints Reports no additional complaints Musc Reports no additional complaints Physical exam (Primary Care) Vital Signs: Last Vital Signs Pulse 75 01/09/24 08:42 BP 120/84 01/09/24 08:42 Pulse Ox 97 01/09/24 08:42 Oxygen Delivery Method Room Air 01/09/24 08:42 BMI result Body Mass Index 33.8 Tobacco/Smoking Status: Tobacco use Status Tobacco use date assessed 01/09/24 01/09/24 08:46 Patient Tobacco Use Status Never used Tobacco 01/09/24 08:46 e-Cigarette/Vaping Use Never Used 01/09/24 08:42 PHQ-9: PHQ-9 Score PHQ-9: Total score 17 01/09/24 08:46 Depression Screening Interpretation: Positive (Patient is established with a counselor) Depression Screening Follow-up: Existing condition and In treatment Thrive Assessment: Date of Thrive Assessment Date Thrive assessed 01/09/24 01/09/24 08:46 Currently or been in a relationship where the following occur: No concerns reported Const General: no acute distress HENMT Head: Yes normal to inspection Ears: hearing grossly normal bilaterally General nose exam: Normal external nose present Mouth: Normal oral and palatal mucosa present Eyes General: appearance normal, both eyes and all related structures Neck Neck: Yes no lymphadenopathy and Yes supple Resp Effort & Inspection: normal respiratory effort Auscultation: clear to auscultation bilaterally Cardio Rhythm: regular rhythm Heart sounds: S1 normal heart sound present and S2 normal heart sound present GI Inspection: Yes normal to inspection Palpation (GI): Soft to palpation Percussion: Yes normal to percussion Auscultation: normal bowel sounds Extrem Other: There is a soft tissue swelling and significantly decreased range of motion in left knee. There is medial aspect tenderness General: Yes no clubbing, cyanosis or edema Coding Level of Care Code Est Pt Prev Care 18-39y(12730) Diagnoses Anxiety F41.9 Annual physical exam Z00.00 Medial meniscus tear S83.249A On pre-exposure prophylaxis for HIV Z79.899 Chest pain R07.9 Additional Codes KELL-7 Assessment Billing - KELL-7 Assessment Tool: KELL-7 Assessment 12691 ([id number]) Assessment & Plan Assessment & Plan (1) Anxiety: Code(s): F41.9 - Anxiety disorder, unspecified Category: Medical Plan: Patient will continue counseling as needed he is not interested in taking medications. Stress management and mindfulness discussed with the patient (2) Annual physical exam: Code(s): Z00.00 - Encounter for general adult medical examination without abnormal findings Category: Medical Plan: Well-balanced diet regular physical activity discussed with the patient (3) Medial meniscus tear: Comment: Knee x-ray was normal, ultrasound showed Arroyo's 01/2024 Code(s): S83.249A - Other tear of medial meniscus, current injury, unspecified knee, initial encounter Category: Medical Plan: Patient has an appointment with ortho tomorrow, obtain MRI of the knee to evaluate for meniscus tear (4) On pre-exposure prophylaxis for HIV: Comment: on Truvada and doxycycline 200 mg within 24-42 hours of unprotected sex (DoxyPEP) Code(s): 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 Category: Medical Plan: Check STDs (5) Chest pain: Code(s): R07.9 - Chest pain, unspecified Category: Medical Plan: EKG showed normal sinus rhythm no ST-T changes for any recurrent symptoms patient was advised to call so stress test will be scheduled Orders: Orders Complete Blood Count Auto Diff Today F41.9 - Anxiety disorder, unspecified, Z00.00 - Encounter for general adult medical examination without abnormal findings HIV Ab/Ag Today F41.9 - Anxiety disorder, unspecified, Z00.00 - Encounter for general adult medical examination without abnormal findings Rheumatoid Factor Today F41.9 - Anxiety disorder, unspecified, Z00.00 - Encounter for general adult medical examination without abnormal findings UA CC w/rflx Micro + Cult Today Z00.00 - Encounter for general adult medical examination without abnormal findings AMB EKG-In Office Today E78.5 - Hyperlipidemia, unspecified, R07.9 - Chest pain, unspecified Uric Acid Today M25.562 - Pain in left knee Comprehensive [place]. Panel Fast Today F41.9 - Anxiety disorder, unspecified, Z00.00 - Encounter for general adult medical examination without abnormal findings Lipid Panel Today F41.9 - Anxiety disorder, unspecified, Z00.00 - Encounter for general adult medical examination without abnormal findings Syphilis Screen Today F41.9 - Anxiety disorder, unspecified, Z00.00 - Encounter for general adult medical examination without abnormal findings NGOZI Reflex Titer and Pattern Today F41.9 - Anxiety disorder, unspecified, Z00.00 - Encounter for general adult medical examination without abnormal findings Lyme IgG/IgM w/reflex to WB Today F41.9 - Anxiety disorder, unspecified, Z00.00 - Encounter for general adult medical examination without abnormal findings C Reactive Protein Today F41.9 - Anxiety disorder, unspecified, Z00.00 - Encounter for general adult medical examination without abnormal findings MR knee LT wo con Today S83.249A - Other tear of medial meniscus, current injury, unspecified knee, initial encounter CT NG by PCR Today Z00.00 - Encounter for general adult medical examination without abnormal findings, Z79.899 - Other penitentiary (current) drug therapy
== END 2024-01-09 09:39 | disposition home or self-care (01) ==
PROVIDERS: PCP Internal Medicine; Visit Provider Internal Medicine
DX: F41.9 Anxiety disorder, unspecified (principal); Z00.00 Encounter for general adult medical examination without abnormal findings; S83.249A Other tear of medial meniscus, current injury, unspecified knee, initial encounter; Z79.899 Other long term (current) drug therapy; R07.9 Chest pain, unspecified

== ENCOUNTER → 2024-01-09 08:38 | Outpatient (BNVA) | payer OTHER, SELFPAY | PROVIDERS: PCP Internal Medicine; Visit Provider Internal Medicine | DX: Z00.00 Encounter for general adult medical examination without abnormal findings (principal); F41.9 Anxiety disorder, unspecified; S83.249A Other tear of medial meniscus, current injury, unspecified knee, initial encounter; R07.9 Chest pain, unspecified; X58.XXXA Exposure to other specified factors, initial encounter; Y93.9 Activity, unspecified; Y92.9 Unspecified place or not applicable; Y99.9 Unspecified external cause status; Z79.899 Other long term (current) drug therapy | CPT/HCPCS: 96127 ==

== ENCOUNTER 2024-01-09 09:53 | Outpatient (REF) | payer BC, SELFPAY ==
[2024-01-09 13:12] LABS: MANUAL DIFF FLAG NO
[2024-01-09 13:25] LABS: Appearance Urine Clear; Color Urine Yellow; Glucose Urine UA Negative (Negative); Leukocyte Esterase Urine Negative (Negative); Nitrite Urine Negative (Negative); Urine Blood Negative (Negative); Urine Ketones Negative (Negative); Urine Protein Negative (Neg-Trace)
[2024-01-09 13:39] LABS: Basophils Absolute Auto 0.1 X10*3/uL (0.0-0.2); Basophils Percent Auto 0.7 % (0-2); Eosinophils Absolute Auto 0.1 X10*3/uL (0.0-0.4); Eosinophils Percent Auto 1.4 % (0-4); Hemoglobin 14.1 g/dl (14.0-18.0); Imm Gran Abs Auto 0.05 X10*3/uL (0.00-0.03); Imm Gran Pct Auto 0.6 % (0.0-0.4); Lymphocytes Absolute Auto 3.6 X10*3/uL (1.2-4.9); Lymphocytes Percent Auto 43.9 % (20-40); Mean Corpuscular HGB Conc 33.6 g/dl (31.0-36.0); Mean Corpuscular Hemoglobin 29.3 pg (27.0-33.0); Mean Corpuscular Volume 87.1 fL (80.0-98.0); Mean Platelet Volume 10.1 fL (9.4-12.4); Monocytes Absolute Auto 0.5 X10*3/uL (0.1-1.2); Monocytes Percent Auto 6.6 % (2-11); Neutrophils Absolute Auto 3.8 x10*3/uL (2.0-8.3); Neutrophils Percent Auto 46.8 % (45-73); Platelet Count 304 X10*3/uL (160-400); Red Blood Count 4.82 X10*6/uL (4.60-5.80); Red Cell Distribution Width 13.7 % (11.0-16.0); White Blood Count 8.1 X10*3/uL (4.8-10.8)
[2024-01-09 14:00] LABS: Alanine Aminotransferase 25 U/L (0-40); Alkaline Phosphatase 58 U/L (39-117); Anion Gap 12 (12-20); Aspartate Amino Transferase 14 U/L (5-37); Bilirubin Total 0.3 mg/dL (0.0-1.0); Blood Urea Nitrogen 12 mg/dL (9-16); C Reactive Protein < 0.10 mg/dL (< or = 0.50); Calcium 9.1 mg/dL (8.4-10.2); Carbon Dioxide 27 mmol/L (22-29); Chloride 107 mmol/L (96-108); Cholesterol 159 mg/dL (<200); Estimated Glomerular Filt Rate > 60; Glucose Fasting 90 mg/dL (60-99); HDL Cholesterol 45 mg/dL (>40); LDL Cholesterol Calculated 104 mg/dL (<100); Potassium 3.8 mmol/L (3.3-5.1); Rheumatoid Factor < 13.0 IU/mL (<15.0); Sodium 142 mmol/L (135-145); Total Protein 6.6 g/dL (6.5-8.0); Triglycerides 53 mg/dL (<150); Uric Acid 3.8 mg/dL (3.4-7.0)
[2024-01-09 14:49] LABS: CT PCR NOT DETECTED (Not Detect.); NG PCR NOT DETECTED (Not Detect.)
[2024-01-10 04:16] LABS: Syphilis Screen Nonreactive (Nonreactive)
[2024-01-10 04:45] LABS: HIV AB/AG Nonreactive (Nonreactive); HIV Num 1 0.05 S/CO (0.00-0.99)
[2024-01-10 19:33] LABS: Lyme Abs Screen <0.90 index
[2024-01-11 11:14] LABS: Anti Nuclear Antibody Screen NEGATIVE (NEGATIVE)
== END 2024-01-09 09:54 | disposition home or self-care (01) ==
LOC: HO.HMGCLDS 09:53
PROVIDERS: PCP Internal Medicine; Visit Provider Internal Medicine
DX: Z00.00 Encounter for general adult medical examination without abnormal findings (principal); F41.9 Anxiety disorder, unspecified; M25.562 Pain in left knee; Z79.899 Other long term (current) drug therapy
CPT/HCPCS: 80053; 80061; 81003; 84550; 85025; 86038; 86140; 86431; 86617; 86618; 86780; 87389; 87491; 87591

== ENCOUNTER 2024-01-10 10:41 | Outpatient (AMB) | payer BC, SELFPAY ==
--- NOTE | 2024-01-10 10:52 | A.OFFVIS_ITS ---
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 Pt denies any previous surgeries or injections in his left knee. Pt went to the ED last tuesday and has been using crutches off and on as well as a stablizer brace. 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 X-rays of the left knee were obtained. US of the left knee was obtained. He was placed in a knee brace. He was prescribed prednisone 20 mg 2 tablets PO daily for 5 days and ketorolac 10 mg PO Q6H for 5 days. 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 He admits that due to incomplete preparation as far as the training goes for the audition, he started experiencing mild left knee pain the next day of the audition. He mentions suffering a severe pain on 01/03/24 and states he could feel a popping in the back of his knee. He confirms visiting the ED on the same day. He has been using the crutches intermittently and the stabilizer brace since then. The patient denies any previous surgeries or injections in his left knee. 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 Housing: House Patient Tobacco Use Status: Never used Tobacco e-Cigarette/Vaping Use: Never Used service: No Current occupational status: employed Cognitive needs: No Hearing needs: No Vision needs: No Review of Systems Const All systems reviewed & are unremarkable except as noted in HPI and below Physical Exam Const General: cooperative and no acute distress Orientation/consciousness: patient oriented x3 Resp Effort & Inspection: normal respiratory effort and able to speak in complete sentences Cardio Peripheral pulses: Peripheral pulses 2+ throughout Skin General skin exam: no rashes or lesions noted Neuro General: patient oriented x3 Extrem Other: Left knee:Normal to inspection. No ecchymosis, erythema, or joint effusion. No tenderness to palpation along the medial or lateral joint lines. Tenderness to palpation over popliteal fossa. Full knee extension and flexion. Negative rohit?s. Negative anterior drawer. NVI. Assessment & Plan Assessment & Plan (1) Left knee sprain: Code(s): S83.92XA - Sprain of unspecified site of left knee, initial encounter Category: Medical (2) Arroyo's cyst of knee: Code(s): M71.20 - Synovial cyst of popliteal space [Arroyo], unspecified knee Category: Medical Plan Mr. Magallon is a 33-year-old male who presents in the office today, as a new patient, for an evaluation of left knee pain. 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 X-rays of the left knee were obtained. US of the left knee was obtained. He was placed in a knee brace. He was prescribed prednisone 20 mg 2 tablets PO daily for 5 days and ketorolac 10 mg PO Q6H for 5 days. While in the office today, the patient reports he auditioned for a [employer] company a week ago. He admits that due to incomplete preparation as far as the training goes for the audition, he started experiencing mild pain the next day of the audition. He mentions suffering a severe pain on 01/03/24 and states he could feel a popping in the back of his knee. He confirms visiting the ED on the same day. He has been using the crutches intermittently and the stabilizer brace since then. The patient denies any previous surgeries or injections in his left knee. The patient was placed in the genimed knee brace, off the shelf. The patient appears to be overuse injury due to the incomplete preparation for the dance audition. He should focus on quad strengthening. I have sent a prescription for diclofenac 75 mg BID for pain. Follow up will be PRN, or sooner if needed. X-rays of the left knee which were obtained while in the office today and were reviewed by me, Татьяна Mansfield PA-C, revealed: Negative for any acute fracture of dislocation. US of the left lower extremity, obtained on 01/03/24, revealed: There is a 2.0 x 0.8 x 1.8 cm Arroyo's cyst present. Some fluid is present anterior to the knee as well. No evidence of deep venous thrombosis involving the left lower extremity. X-rays of the left knee, obtained on 01/03/24, revealed: Normal left knee. Orders: Orders 2 XR knee RT 1V Today M25.569 - Pain in unspecified knee XR knee LT 2V Today M25.569 - Pain in unspecified knee Medications: New diclofenac sodium 75 mg PO BID PRN 60 tabs 0RF pain Patient Instructions: Scribed by Linh Soler, biomedical engineering technologist, for Татьяна Mansfield PA-C on 01/10/24 at 11:10 am EST. Coding Level of Care Code New Pt Level 4 (03624) Diagnoses Left knee sprain S83.92XA Arroyo's cyst of knee M71.20
== END 2024-01-10 11:35 | disposition home or self-care (01) ==
PROVIDERS: PCP Internal Medicine; Visit Provider Physician Assistant
DX: S83.92XA Sprain of unspecified site of left knee, initial encounter (principal); M71.22 Synovial cyst of popliteal space [Baker], left knee
CPT/HCPCS: 99204

== ENCOUNTER 2024-01-10 12:53 | Outpatient (REF) | payer BC, SELFPAY ==
--- NOTE | ~2024-01-10 | XR_ITS ---
EXAMINATIONS: XR KNEE, RIGHT XR KNEE, LEFT CLINICAL INFORMATION: Knee pain. COMPARISON: January 03, 2024. TECHNIQUES: Frontal view of the right knee. Frontal and sunrise views of the left knee. FINDINGS: Right: No fracture or obvious joint effusion. Alignment is anatomic. Joint spaces appear maintained. No abnormal soft tissue calcification. Left: No fracture or obvious joint effusion. Alignment is anatomic. Joint spaces appear maintained. No abnormal soft tissue calcification. XR/XR knee RT 1V IMPRESSION: No abnormal finding. Electronically signed by: John Mejia MD 01/10/2024 03:48 PM EDT
--- NOTE | ~2024-01-10 | XR_ITS ---
EXAMINATIONS: XR KNEE, RIGHT XR KNEE, LEFT CLINICAL INFORMATION: Knee pain. COMPARISON: January 03, 2024. TECHNIQUES: Frontal view of the right knee. Frontal and sunrise views of the left knee. FINDINGS: Right: No fracture or obvious joint effusion. Alignment is anatomic. Joint spaces appear maintained. No abnormal soft tissue calcification. Left: No fracture or obvious joint effusion. Alignment is anatomic. Joint spaces appear maintained. No abnormal soft tissue calcification. XR/XR knee LT 2V IMPRESSION: No abnormal finding. Electronically signed by: John Mejia MD 01/10/2024 03:48 PM EDT
== END 2024-01-10 12:54 | disposition home or self-care (01) ==
LOC: HO.HOSX 12:53
PROVIDERS: Visit Provider Physician Assistant
DX: M25.569 Pain in unspecified knee (principal)
CPT/HCPCS: 73560

== ENCOUNTER 2024-02-14 10:45 | Outpatient (AMB) | payer BC, SELFPAY ==
[2024-02-14 10:51] VITALS: BP 120/74; PULSE 81; O2SAT 98; BMI 32.0
--- NOTE | 2024-02-14 10:51 | MHC.PC.OV ---
Vital Signs 02/14/24 10:51 Height 5 ft 9 in Weight 217 lb BMI 32.0 BP 120/74 Blood Pressure Location Lt brachial Position Sitting Pulse 81 Pulse Source Pulse Oximeter Pulse Oximetry (%) 98 Oxygen Delivery Method Room Air Intake Visit Reasons: 1 month follow up Intake Note: Pt is here today for 1 month follow up visit. Allergies No Known Allergies Allergy (Verified 02/14/24 10:55) Medication List - Last Reconciled 02/14/24 by Apryl Barrett MD diclofenac sodium TAKE 1 TABLET BY MOUTH TWICE A DAY NEEDED FOR PAIN emtricitabine-tenofovir (TDF) 200-300 mg (Truvada) 1 tab PO DAILY fluticasone propionate 50 mcg/actuation (Flonase Allergy Relief) 1 spray intranasal DAILY ketorolac 10 mg PO Q6H 5 days lidocaine HCl-hydrocortison ac 3-0.5 % 1 appl [place] BEDTIME 10 days meloxicam 15 mg PO DAILY Tobacco use date assessed: 02/14/24 Dental Screening Dental Screen Date: 01/09/24 HPI 1 month follow up HPI Details Pt presents for f/u of L knee pain, getting better. Patient was seen by ortho and was prescribed a brace, which made his pain worse. 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 MRI was negative for significant ACL or meniscus injury. 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: House Patient Tobacco Use Status: Never used Tobacco e-Cigarette/Vaping Use: Never Used service: No Current occupational status: employed Cognitive needs: No Hearing needs: No Vision needs: No Questionnaire Thrive Questionnaire Date Thrive assessed: 01/09/24 I am a: Patient What is your living situation today?: I have a steady place to live Within the past 12 months, did the food you bought not last and you didn't have the money to get more?: Never true Within the past 12 months, did you worry whether your food would run out before you got money to buy more?: Never true Do you have trouble paying for medicines?: No Do you have trouble getting transportation to medical appointments?: No Do you have trouble paying your heating and electricity bill?: No Do you have trouble taking care of your child, family member or friend?: No Do you have trouble with day-to-day activities such as bathing, preparing meals, shopping, managing finances, etc.?: No Are you currently unemployed and looking for a job?: I choose not to answer this question Are you interested in more education?: No Please select the resources that you would like help with: None Currently or been in a relationship where the following occur: No concerns reported THRIVE Score: 0 KELL-7 AMB Questionnaire KELL-7 Date KELL - 7 assessed: 01/09/24 Source: Developed by Drs. Donta Tucker, Laurel West, Bakari John and colleagues, with an educational gen from [employer]. Review of Systems Const All systems reviewed & are unremarkable except as noted in HPI and below Card Reports no additional complaints Resp Reports no additional complaints GI Reports no additional complaints Reports no additional complaints Physical exam (Primary Care) Vital Signs: Last Vital Signs Pulse 81 02/14/24 10:51 BP 120/74 02/14/24 10:51 Pulse Ox 98 02/14/24 10:51 Oxygen Delivery Method Room Air 02/14/24 10:51 BMI result Body Mass Index 32.0 Tobacco/Smoking Status: Tobacco use Status Tobacco use date assessed 02/14/24 02/14/24 10:56 Patient Tobacco Use Status Never used Tobacco 02/14/24 10:56 e-Cigarette/Vaping Use Never Used 02/14/24 10:56 Thrive Assessment: Date of Thrive Assessment Date Thrive assessed 01/09/24 02/14/24 10:56 Currently or been in a relationship where the following occur: No concerns reported Const General: no acute distress Eyes General: appearance normal, both eyes and all related structures Resp Effort & Inspection: normal respiratory effort Auscultation: clear to auscultation bilaterally Cardio Rhythm: regular rhythm Heart sounds: S1 normal heart sound present and S2 normal heart sound present GI Inspection: Yes normal to inspection Palpation (GI): Soft to palpation Percussion: Yes normal to percussion Extrem Other: Left knee with a slight decreased range of motion , no soft tissue swelling or tenderness Coding Level of Care Code Est Pt Level 4 (15800) Diagnoses Annual physical exam Z00.00 On pre-exposure prophylaxis for HIV Z79.899 Hyperlipidemia E78.5 Left knee sprain S83.92XA Assessment & Plan Assessment & Plan (1) Annual physical exam: Code(s): Z00.00 - Encounter for general adult medical examination without abnormal findings Category: Medical Plan: Return for physical next year (2) On pre-exposure prophylaxis for HIV: Comment: on Truvada and doxycycline 200 mg within 24-42 hours of unprotected sex (DoxyPEP) Code(s): Z79.899 - Other shelter (current) drug therapy Category: Medical Plan: Monitor STDs every 6 months if sexually active (3) Hyperlipidemia: Code(s): E78.5 - Hyperlipidemia, unspecified Category: Medical Plan: Significantly improved on low-cholesterol diet (4) Left knee sprain: Code(s): S83.92XA - Sprain of unspecified site of left knee, initial encounter Category: Medical Plan: Patient declined physical therapy he will continue regular knee exercises Orders: Orders Comprehensive Sula. 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 Panel 6 Months Z00.00 - Encounter for general adult medical examination without abnormal findings HIV Ab/Ag 6 Months Z00.00 - Encounter for general adult medical examination without abnormal findings Syphilis Screen 6 Months Z00.00 - Encounter for general adult medical examination without abnormal findings CT NG by PCR 6 Months Z00.00 - Encounter for general adult medical examination without abnormal findings Hepatitis B Core Antibody 6 Months Z00.00 - Encounter for general adult medical examination without abnormal findings Lipid Panel 11 Months E78.5 - Hyperlipidemia, unspecified, Z00.00 - Encounter for general adult medical examination without abnormal findings, Z79.899 - Other shelter (current) drug therapy Complete Blood Count Auto Diff 11 Months E78.5 - Hyperlipidemia, unspecified, Z00.00 - Encounter for general adult medical examination without abnormal findings, Z79.899 - Other remote 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 operator (current) drug therapy UA w Microscopic 11 Months E78.5 - Hyperlipidemia, unspecified, Z00.00 - Encounter for general adult medical examination without abnormal findings, Z79.899 - Other remote 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
== END 2024-02-14 11:43 | disposition home or self-care (01) ==
PROVIDERS: PCP Internal Medicine; Visit Provider Internal Medicine
DX: Z00.00 Encounter for general adult medical examination without abnormal findings (principal); Z79.899 Other long term (current) drug therapy; E78.5 Hyperlipidemia, unspecified; S83.92XA Sprain of unspecified site of left knee, initial encounter

== ENCOUNTER → 2024-02-14 10:45 | Outpatient (BNVA) | payer BC, SELFPAY | PROVIDERS: PCP Internal Medicine; Visit Provider Internal Medicine ==

== ENCOUNTER 2024-07-17 13:32 | Outpatient (AMB) | payer BC, SELFPAY ==
[2024-07-17 13:36] VITALS: BP 118/78; PULSE 76; RESP 18; TEMP 37.4; O2SAT 97; BMI 32.9
--- NOTE | 2024-07-17 13:36 | A.OFFPC_ITS ---
Vital Signs 07/17/24 13:36 Height 5 ft 9 in Weight 223 lb BMI 32.9 BP 118/78 Blood Pressure Location Lt brachial Position Sitting Respiration 18 Pulse 76 Pulse Source Pulse Oximeter Temp 99.3 F Temp Source Oral Pulse Oximetry (%) 97 Oxygen Delivery Method Room Air Intake Visit Reasons: F/UP Intake Note: Pt is here today for a follow up visit.Pt states that he has been having pain in his R elbow area and swelling that goes down his arm. Pt states that he needs blood work done for titers. Allergies No Known Allergies Allergy (Verified 07/17/24 13:44) Medication List - Last Reconciled 07/17/24 by Apryl Barrett MD diclofenac sodium 75 mg PO BID PRN emtricitabine-tenofovir (TDF) 200-300 mg (Truvada) 1 tab PO DAILY fluticasone propionate 50 mcg/actuation (Flonase Allergy Relief) 1 spray intranasal DAILY ketorolac 10 mg PO Q6H 5 days lidocaine HCl-hydrocortison ac 3-0.5 % 1 appl [place] BEDTIME 10 days Tobacco use date assessed: 07/17/24 Dental Screening Dental Screen Date: 07/17/24 Did you have a dental visit in the last 12 months?: No Did you have a dental problem in the last 6 months where you did not have access to dental care?: No Was dental information given to patient?: Patient declined HPI F/UP HPI Details Patient presents complaining of right elbow pain for 2 weeks worse when trying to use it. 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 Patient denies any joint swelling. 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 18234 - PHQ-9 Billing: Patient declined-do not bill Source: Developed by Drs. Donta Tucker, Laurel West, Bakari John and colleagues, with an educational gen from [employer]. Thrive Questionnaire Date Thrive assessed: 01/09/24 AUDIT C Alcohol Use Questionnaire (AUDIT-C) 1. How often do you have a drink containing alcohol?: Monthly or less 2. How many drinks containing alcohol do you have on a typical day when you are drinking?: 1 or 2 3. How often do you have six or more drinks on one occasion?: Never Total Score: 1 KELL-7 AMB Questionnaire KELL-7 Date KELL - 7 assessed: 01/09/24 Source: Developed by Drs. Donta Tucker, Laurel West, Bakari John and colleagues, with an educational gen from [employer]. Review of Systems Const All systems reviewed & are unremarkable except as noted in HPI and below Eyes Reports no additional complaints ENT Reports no additional complaints Resp Reports no additional complaints GI Reports no additional complaints Reports no additional complaints Physical exam (Primary Care) Vital Signs: Last Vital Signs Temp 99.3 F 07/17/24 13:36 Pulse 76 07/17/24 13:36 Resp 18 07/17/24 13:36 BP 118/78 07/17/24 13:36 Pulse Ox 97 07/17/24 13:36 Oxygen Delivery Method Room Air 07/17/24 13:36 BMI result Body Mass Index 32.9 Tobacco/Smoking Status: Tobacco use Status Tobacco use date assessed 07/17/24 07/17/24 13:44 Patient Tobacco Use Status Never used Tobacco 07/17/24 13:36 e-Cigarette/Vaping Use Never Used 07/17/24 13:36 Thrive Assessment: Date of Thrive Assessment Date Thrive assessed 01/09/24 07/17/24 13:36 Const General: no acute distress HENMT Head: Yes normal to inspection Resp Effort & Inspection: normal respiratory effort Auscultation: clear to auscultation bilaterally Cardio Rhythm: regular rhythm Heart sounds: S1 normal heart sound present and S2 normal heart sound present Extrem Other: There is decreased range of motion of the right elbow and reproducible tenderness over right lateral epicondyle, no soft tissue swelling erythema or warmth Immunizations Boostrix Tdap 2.5 Lf unit-8 mcg-5 Lf/0.5 mL intramuscular syringe Performing Provider: Apryl Barrett MD Performing Location: [facility] Administered by: KELLY Nelson on 07/17/24 14:15 Dose Route Admin Location Dispensed Lot Number Expiration Date NDC [employer] 0.5 mL IM Left Deltoid 0.5 mL [id number] 07/17/24 61159-271-27 [email or web address] VIS Given Date VIS Provided VIS Publication Date 07/17/24 Single Vaccine 20 Eligibility Eligibility Date Funding Source Not [facility] Eligible 07/17/24 Private Coding Level of Care Code Est Pt Level 3 (46386) Diagnoses Lateral epicondylitis, right elbow M77.11 Assessment & Plan Assessment & Plan (1) Lateral epicondylitis, right elbow: Code(s): M77.11 - Lateral epicondylitis, right elbow Category: Medical Plan: Meloxicam as prescribed and supportive care discussed with the patient including tennis elbow exercises. PT was recommended but patient declined Orders: Orders MMR IgG Measles Mumps Rubella Today Z00.00 - Encounter for general adult medical examination without abnormal findings Varicella IgG Antibody Today Z00.00 - Encounter for general adult medical examination without abnormal findings Hepatitis B Surface Antibody Today Z00.00 - Encounter for general adult medical examination without abnormal findings TDaP Immunization Today Z23 - Encounter for immunization
--- OUTSIDE RECORDS SUMMARY | 2024-07-17 16:36 | XMS_ITS ---
Author Name [facility] Organization Unknown Encounters Encounter Type Encounter Reason Primary Diagnosis Location Date Ambulatory [facility] [place] [place] 01/03/2024 Ambulatory [facility] 01/03/2024
--- OUTSIDE RECORDS SUMMARY | 2024-07-17 16:36 | XMS_ITS | Data Portability ---
Author Organization JASON Lugo [facility] [id number] Address [address] [place] [address] Care Team Providers Care Title Search Manager Name Role Phone SHAISTA RODRIGUEZ Primary Care Provider [phone] Assessment Encounter Date Assessment Date Assessment LastModified by Organization Details LastModified Time 12/17/2023 12/17/2023 Based on your ex am and presentation, you are being diagnosed with Shingles. You are going to start an antiviral medication to help suppress the replication of the virus and help you fight the infection. The following are my recommendations to help with your systems and allow your body to heal: 1. No creams or lotions on the vesicles/rash 2. Take Ibuprofen or Tylenol if you do not have any allergies to these medications. If you take a blood thinner you should not take NSAIDS like Ibuprofen. 3. After the rash heals if you are still having pain you can use Over The Counter Lidoderm Patches 4. Try and avoid scratching or rubbing the area to prevent a skin infection. The rash may take 2-3 weeks to completely resolve. You will most likely be done with the medication but still have the rash. In some occasions after the rash heals you may have some residual pain in that area affected - this is called POST HERPATIC NEURALGIA. If you are experiencing this, you can purchase some Lidoderm Patches over the counter and apply one every 12 hours. Most of the time, people use these to help sleep. You should be seen again if you develop any of the following symptoms. 1. Severe Headache 2. New involvement with the eye. 3. Fever 4. Stiff Neck 5. Shortness of breath. I would recommend the Shingles Vaccine. You can receive this 6 months after this infection. Thank you for using [facility], please feel free to contact us if you have any questions or concerns. [email or web address] Not available 12/17/2023 11:32:29 Plan of Treatment Reminders Order Date Submit Date Provider Last Modified By Organization Details Last Modified Time Details Appointments None recorded. Lab None recorded. Referral None recorded. Procedures None recorded. Surgeries None recorded. Imaging None recorded. Medication Orders valacyclovi r 1 gram tablet 2023 024 [id number], [address] [place], [address], 11:32:01 Patient TargetsNo targets recorded. Patient Instructions Encounter Date Encounter Id Patient Instructions Last Modified By Organization Details Last Modified Time 12/17/2023 [id number] shingles: care instructions [email or web address] Not available 12/17/2023 11:32:00 Reason for Referral None Reported. Problems Name Problem SNOMED Code Status Onset Date Resolution Date Notes Provider Name and Address Organization Details Recorded Time Herpes zoster [id number] Active 024 TIAN GALEAS NP [address] [place], [address] , [place] - [facility] 12/17/2023 11:28:55 Problem Notes None recorded. Procedures Surgical History Date Name Laterality Status Provider Name and Address Organization Details Recorded Time procedure on eye completed Bridgette English [place] - [facility] 12/17/2023 11:18:14 Imaging Results None recorded. Procedure Notes None recorded. Medical Equipment None Reported. Allergies No known drug allergies Medications Name Sig Start Date Stop Date Status Note LastModified by Organization Details LastModified Time valacyclovir 1 gram tablet Take 1 tablet 3 times a day by oral route for 7 days. 2023 active Not Available Not Available Not Avai lable meloxicam 15 mg tablet TAKE 1 TABLET BY MOUTH EVERY DAY active Not Available Not Available No t Available emtricitabine 200 mg-tenofovir disoproxil fumarate 300 mg tablet TAKE 1 TABLET BY MOUTH EVERY DAY active Not Available Not Available No t Available Vitals Date Recorded Body height Body mass index (BMI) Body weight Oxygen saturation Oxygen saturation in Arterial blood by Pulse oximetry Pain severity - 0-10 verbal numeric rating [Score] - Reported Heart rate Respiratory rate Body temperature Systolic blood pressure Diastolic blood pressure Provider Name and Address Organization Details Last Updated DateTime 175.26 cm 32.8 kg/m2 062905. 51 g 100 % 100 % 8 80 /min 17 /min 98.8 [degF] 126 mm[Hg] 87 mm[Hg] Bridgette [facility] 11:15:25 Social History Question Answer Notes LastModified by Organizat ion Details LastModified Time Tobacco Smoking Status Never Smoker [facility] 12/17/2023 11:17:49 What Is Your Level Of Alcohol Consumption? Occasional [email or web address] Information not available 12/17/2023 How Many Times Per Week Do You Consume Alcohol? Less Than 1 Time Per Week [email or web address] Information not available 12/17/2023 Are You Currently Employed? Yes [email or web address] Information not available 12/17/2023 Have You Had A Flu Shot This Season? No [email or web address] Information not available 12/17/2023 If No, Would You Like A Flu Shot Today? No [email or web address] Information not available 12/17/2023 What Is Your Relationship Status? Information not available 12/17/2023 Do You Use Any Illicit Or Recreational Drugs? No [email or web address] Information not available 12/17/2023 Have You Recently Traveled Abroad? No [email or web address] Information not available 12/17/2023 Do You Or Have You Ever Used Any Other Forms Of Tobacco Or Nicotine? No [email or web address] Information not available 12/17/2023 Sex: Unknown Functional Status None recorded. Mental Status None recorded. Family History Nothing Reported. Medical History No medical history recorded. Immunizations Vaccine Type Date Status Note Provider Nam e and Address Organization Details Recorded Time COVID-19, mRNA, LNP-S, bivalent, PF, 30 mcg/0.3 mL dose 01/26/2022 completed [facility] 12/17/2023 11:15:56 Past Encounters Encounter ID Performer Location Encounter Start Date Encounter Closed Date Diagnosis/Indication Diagnosis SNOMED-CT Code Diagnosis ICD10 Code Diagnosis [place] [id number] [place] [address] [address] 12/17/2023 11:02:33 12/17/2023 11:33:26 Herpes zoster 8421538 B02.9 Health Concerns Section Related Observation LastModified by Organization Detai ls LastModified Time None Recorded Concern Status LastModified by Organization Details LastModified Time None Recorded Advance Directives Directive None Recorded Payers Encounter Date Sequence Insurance Name Policy Number Policy Kelley Covered Member ID Kelley Member ID Guarantor Name 12/17/2023 1 [place] [place] Juan Jose Magallon [id number] Juan Jose Magallon Notes Date Note Type Note Provider Name and Address Organization Details Recorded Time 12/17/2023 text/html UC Rash/Skin LesionReported bypatient.Location:[facility] Quality:itchy;painful ;swollen Severity:severe Duration:3 days pt is s 33 yo male here for evaluation of a rash to right lower abdomen and back pain, severe without any traum and no injuriesreports no fever an no chills TIAN GALEAS NP [address] [place], [address], [place] - [facility] 12/17/2023 11:37:53
== END 2024-07-17 14:32 | disposition home or self-care (01) ==
LOC: HO.HMCC 13:32
PROVIDERS: PCP Internal Medicine; Visit Provider Internal Medicine
DX: Z23 Encounter for immunization (principal); M77.11 Lateral epicondylitis, right elbow

== ENCOUNTER 2024-07-17 13:32 | Outpatient (REF) | payer BC, SELFPAY ==
[2024-07-18 08:10] LABS: HBS Num1 87.61 mIU/mL (0-7.99); ~Hepatitis B Surface Antibody REACTIVE (Nonreactive)
[2024-07-18 08:59] LABS: Mumps Virus IgG Antibody <9.00 AU/mL; Rubella IgG Antibody 1.32 Index
== END 2024-07-17 13:33 | disposition home or self-care (01) ==
LOC: HO.HMGCLDS 13:32
PROVIDERS: PCP Internal Medicine; Visit Provider Internal Medicine
DX: M77.11 Lateral epicondylitis, right elbow (principal); Z23 Encounter for immunization; Z00.00 Encounter for general adult medical examination without abnormal findings
CPT/HCPCS: 36415; 86706; 86735; 86762; 86765; 86787; 90471; 90715